=== PATIENT | male | born 1960 | race Caucasian/White ===

== ENCOUNTER 2021-08-24 07:31 | Observation (INO) | payer BC ==
[2021-08-22 12:37] LABS: BASOPHILS % (AUTO) 0.4 % (0.0-5.0); EOSINOPHILS % (AUTO) 3.8 % (0.0-8.0); LYMPHOCYTES % (AUTO) 22.3 % (21.0-51.0); MEAN CORPUSCULAR HGB CONC 35.6 g/dL (32.0-36.0); MEAN CORPUSCULAR VOLUME 95.6 fL (79-99); MONOCYTES % (AUTO) 11.8 % (3.0-13.0); NEUTROPHILS % (AUTO) 61.5 % (40.0-77.0); PLATELET COUNT (AUTO) 241 K/uL (130-400); RED CELL DISTRIBUTION WIDTH 11.9 % (11.0-15.5); WHITE BLOOD COUNT (AUTO) 8.3 K/uL (4.8-10.8)
[2021-08-22 12:46] LABS: INR 1.03 (0.85-1.15); PROTHROMBIN TIME 11.2 SEC (9.6-11.6)
[2021-08-22 12:48] LABS: CREATININE 0.7 mg/dL (0.5-1.5); POTASSIUM 3.7 mmol/L (3.5-5.1)
[~2021-08-24] VITALS: Ht 182.9 cm; Wt 96.3 kg
[2021-08-24] VITALS (25 sets, daily range): BP systolic 96–149; BP diastolic 56–86
[~2021-08-24 07:31] MED LIST: AEC81 PO; GARLIC PO; LOSA100T58 PO; MULT-1367 PO; NIFE60TA81 PO; ROSU10TA28 PO
[2021-08-24] MEDS ORDERED: DEXAMETHASONE SOD PHOSPHATE 10MG/ML 1ML VIAL ONE (07:55)
[2021-08-24] MEDS ORDERED: SUCCINYLCHOLINE CHLORIDE 20 MG/ML 10 ML VIAL ONE (07:55)
[2021-08-24] MEDS ORDERED: PROPOFOL 10 MG/ML 20ML VIAL IV ONE ×2 (07:55→09:38)
[2021-08-24] MEDS ORDERED: LIDOCAINE PF 100MG/5ML (2%) SYRINGE 5ML ONE (07:55)
[2021-08-24] MEDS ORDERED: GLYCOPYRROLATE 1 MG/5 ML SYRINGE ONE (07:56)
[2021-08-24] MEDS ORDERED: NEOSTIGMINE 5MG/5ML SYR IV ONE (07:56)
[2021-08-24] MEDS ORDERED: MIDAZOLAM HCL 1 MG/ML 2ML VIAL ONE (07:56)
[2021-08-24] MEDS ORDERED: ONDANSETRON 4MG INJ ONE (07:56)
[2021-08-24] MEDS ORDERED: FENTANYL CITRATE PF 50 MCG/1 ML 2ML VIAL ONE ×2 (07:56→09:44)
[2021-08-24] MEDS ORDERED: LACTATED RINGERS 1000ML 1,000 ML IV ONE (07:58)
[2021-08-24] MEDS ORDERED: LIDOCAINE 1%-EPI 1:100,000 20 ML VIAL IJ SCH (08:00)
[2021-08-24] MEDS ORDERED: ROCURONIUM 10MG/1ML SYR 10 MG/ML ML ONE (08:12)
[2021-08-24] MEDS ORDERED: LIDOCAINE 1%-EPI 1:100,000 20 ML VIAL IJ ONE (08:15)
[2021-08-24] MEDS: CEFAZOLIN SODIUM 1 GM VIAL IVP ONE ×2 (08:18→09:30)
[2021-08-24] MEDS ORDERED: CHLO25TA3 PO (08:19)
[2021-08-24] MEDS ORDERED: EPHEDRINE SULFATE 50 MG/ML AMPULE ONE (09:34)
[2021-08-24] MEDS ORDERED: PROPOFOL 1000 MG/100 ML 100 ML IV ONE (10:13)
[2021-08-24] MEDS ORDERED: FENTANYL CITRATE PF 50 MCG/1 ML 5ML AMP IV ONE (10:43)
[2021-08-24] MEDS ORDERED: NALOXONE HCL 0.4 MG/1 ML ML ONE (12:15)
[2021-08-24] MEDS ORDERED: LACTATED RINGERS 1000ML 1,000 ML IV SCH (16:30)
[2021-08-24] MEDS ORDERED: ONDANSETRON 4MG INJ IVP PRN (16:30)
[2021-08-24] MEDS ORDERED: PHARMACY COMMUNICATION MISC SCH (16:30)
[2021-08-24] MEDS: CEFAZOLIN SODIUM 1 GM VIAL IVP SCH ×2 (17:47→21:16)
[2021-08-24] MEDS ORDERED: ATORVASTATIN 20 MG TABLET PO SCH (21:00)
[2021-08-24] MEDS: ACETAMINOPHEN 500 MG TABLET PO SCH (21:16)
[2021-08-25] VITALS: BP 144/79
[2021-08-25] MEDS: ACETAMINOPHEN 500 MG TABLET PO SCH ×2 (01:18→06:32)
[2021-08-25 04:00] VITALS: BP 154/85
[2021-08-25] MEDS: CEFAZOLIN SODIUM 1 GM VIAL IVP SCH (06:32)
[2021-08-25] MEDS ORDERED: ARTIFICAL TEARS SOL 15 ML OU PRN (07:30)
[2021-08-25 08:26] VITALS: BP 168/96
[2021-08-25] MEDS ORDERED: CHLORTHALIDONE 25 MG PO SCH (09:00)
[2021-08-25] MEDS ORDERED: BACITRACIN 28.4 GM OINT TP ONE (09:00)
[2021-08-25] MEDS ORDERED: NIFEDIPINE ER 30 MG TAB PO SCH (09:00)
[2021-08-25] MEDS ORDERED: LOSARTAN 100 MG TABLET PO SCH (09:00)
== END 2021-08-25 10:45 | disposition home or self-care (01) ==
LOC: SUH 07:31 → DAH 07:31 → UNDOADMOB 07:32 → SUH 07:32 → 4CH 07:32 → 3DH 07:32 → 4CH 07:34
PROVIDERS: ADMIT Otolaryngology; ATTEND Otolaryngology
DX: D11.0 Benign neoplasm of parotid gland (principal); Z20.822 Contact with and (suspected) exposure to COVID-19; K13.21 Leukoplakia of oral mucosa, including tongue; R22.1 Localized swelling, mass and lump, neck; F17.290 Nicotine dependence, other tobacco product, uncomplicated; Z68.29 Body mass index [BMI] 29.0-29.9, adult; Z79.899 Other long term (current) drug therapy; Z98.890 Other specified postprocedural states
CPT/HCPCS: 15733; 36415; 42415; 80048; 85025; 85610; 85730; 87635; 96374; 96376 ×2; A4215; A4221; A4222; A4223; A4344; A4649 ×2; A4663; A4930; A6206; A6260; A6446; C9803; G0378 ×22; J0330; J0690 ×4; J1100; J2001; J2250; J2310; J2405; J2704 ×3; J2710; J3010 ×3; J3490 ×5; J7030; J7040; J7120 ×2

== ENCOUNTER → 2021-10-12 | Outpatient (CLI) | payer OTHER ==
[~2021-10-12] MED LIST changes: -LOSA100T58 PO; -NIFE60TA81 PO; -ROSU10TA28 PO
== END | disposition home or self-care (01) ==
LOC: RAH 12:16
PROVIDERS: ATTEND Internal Medicine Cardiovascular Disease
DX: Z13.6 Encounter for screening for cardiovascular disorders (principal); R93.1 Abnormal findings on diagnostic imaging of heart and coronary circulation
CPT/HCPCS: 75571

== ENCOUNTER → 2021-11-01 | Outpatient (CLI) | payer BC | END | disposition home or self-care (01) | LOC: SHCH 12:45 | PROVIDERS: ATTEND Internal Medicine Cardiovascular Disease | DX: I65.23 Occlusion and stenosis of bilateral carotid arteries (principal); I10 Essential (primary) hypertension; E78.5 Hyperlipidemia, unspecified; J44.9 Chronic obstructive pulmonary disease, unspecified; F17.200 Nicotine dependence, unspecified, uncomplicated; R93.1 Abnormal findings on diagnostic imaging of heart and coronary circulation; Z98.890 Other specified postprocedural states | CPT/HCPCS: 93306; 93880 ==

== ENCOUNTER → 2021-11-02 | Outpatient (CLI) | payer BC | END | disposition home or self-care (01) | LOC: SHCH 07:48 | PROVIDERS: ATTEND Internal Medicine Cardiovascular Disease | DX: I70.0 Atherosclerosis of aorta (principal); I70.8 Atherosclerosis of other arteries; E78.5 Hyperlipidemia, unspecified | CPT/HCPCS: 93978 ==

== ENCOUNTER → 2021-11-20 | Outpatient (CLI) | payer BC ==
[~2021-11-20] MED LIST changes: +REGADENOSON 0.4 MG/5 ML PF SYG IVP SCH
== END | disposition home or self-care (01) ==
LOC: SHCH 07:53
PROVIDERS: ATTEND Internal Medicine Cardiovascular Disease
DX: R93.1 Abnormal findings on diagnostic imaging of heart and coronary circulation (principal)
CPT/HCPCS: 78452; 96374; 93017; J2785; A9500 ×2

== ENCOUNTER → 2024-01-01 | Outpatient (CLI) | payer OTHER ==
[~2024-01-01] MED LIST changes: -REGADENOSON 0.4 MG/5 ML PF SYG IVP SCH
== END | disposition home or self-care (01) ==
LOC: SHCH 14:15
PROVIDERS: ATTEND Internal Medicine Cardiovascular Disease
DX: I65.21 Occlusion and stenosis of right carotid artery (principal); R06.00 Dyspnea, unspecified
CPT/HCPCS: 93306; 93880

== ENCOUNTER → 2024-02-26 | Outpatient (CLI) | payer OTHER ==
[~2024-02-26] MED LIST changes: +IOHEXOL 350 MG/ML 100ML INFUS..BTL IV ONE; +metoPROLOL tartRATE 1 MG/ML 5ML VIAL IV ONE
== END | disposition home or self-care (01) ==
LOC: RAH 09:02
PROVIDERS: ATTEND Internal Medicine Cardiovascular Disease
DX: R07.9 Chest pain, unspecified (principal)
CPT/HCPCS: 75574; J3490; Q9967

== ENCOUNTER → 2024-03-04 | Outpatient (CLI) | payer OTHER ==
[~2024-03-04] MED LIST changes: -IOHEXOL 350 MG/ML 100ML INFUS..BTL IV ONE; -metoPROLOL tartRATE 1 MG/ML 5ML VIAL IV ONE
[2024-03-04 12:17] LABS: CREATININE 0.8 mg/dL (0.5-1.3); MAGNESIUM 1.9 mg/dL (1.80-2.40); POTASSIUM 4.1 mmol/L (3.5-5.1)
== END | disposition home or self-care (01) ==
LOC: LAB 08:36
PROVIDERS: ATTEND Internal Medicine Cardiovascular Disease
DX: I10 Essential (primary) hypertension (principal)
CPT/HCPCS: 36415; 80048; 83735